=== PATIENT | male | born 1990 | race Hispanic/Latino ===

== ENCOUNTER 2017-10-10 06:00 | Day surgery (SDC) | payer OTHER ==
[~2017-10-10] VITALS: Ht 180.3 cm; Wt 145.2 kg
--- NOTE | ~2017-10-10 | OR ---
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 PROCEDURE: Arthrotomy right elbow with removal of loose body anteriorly, removal of several loose bodies posteriorly followed by ostectomy of the tip of the olecranon. ANESTHESIA: General. SPECIMENS AND COMPLICATIONS: There were no specimens or complications. TOURNIQUET TIME: Was about 55 minutes. WHAT WAS DONE: The patient was taken to the operating room. After anesthesia was induced and airway secured, the patient was positioned, prepped and draped in a routine sterile fashion. The arm was exsanguinated with Esmarch bandage. Pneumatic tourniquet was inflated to 250 mmHg pressure. A curvilinear lateral incision was made using a portion of one of his old scars for the incision. Skin was divided sharply. Subcutaneous tissue was bluntly spread. We then gently elevated the common extensor wad off the lateral epicondyle and reflected it anteriorly. The limited arthrotomy was done anteriorly and a large loose body seen radiographically. It was grasped and removed without any difficulty. We then irrigated the joint and some additional debris did come out. We then elevated the extensor origin off the posterior aspect, so we could get at the posterior aspect of the elbow joint. We then used a small Cleve clamp and removed loose body from posteriorly. We then used a half-inch osteotome to remove about a centimeter of the tip of the olecranon. After this was removed, we then had full extension of the elbow again. We treated the open surface of the bone with bone wax and PATIENT NAME: MARITO DENNIS OPERATIVE REPORT DATE OF : 88 REPORT #: [id number] PHYSICIAN: DEVENDRA WANG MD PCP: STEFF GERARD MD REPORT IS CONFIDENTIAL AND NOT TO BE RELEASED WITHOUT AUTHORIZATION [facility] [address], [place] [address] Draft copiously irrigated the elbow and drained it. We then placed a single suture anchor over the lateral epicondyle and reattached the radial collateral ligament and the common extensor origin. We then closed the defect in the common extensor origin with interrupted sutures of FiberWire. Routine wound closure was then accomplished and a sterile dressing applied, over which a posterior splint was placed. He was placed in a sling, awakened to the recovery room, where he arrived in stable condition. Counts were correct and antibiotic protocols were followed. Devendra Wang MD WFB/MODL /[id number] Copies: ~ PATIENT NAME: MARITO DENNIS OPERATIVE REPORT DATE OF : [birth year] REPORT #: [id number] PHYSICIAN: DEVENDRA WANG MD PCP: STEFF GERARD MD REPORT IS CONFIDENTIAL AND NOT TO BE RELEASED WITHOUT AUTHORIZATION
--- NOTE | 2017-10-10 09:06 | NUR ---
10/10/17 0906 Cora Forte 0901-PATIENT ARRIVED TO PACU ON 8L MASK O2 SAT 96% PATIENT REACTIVE TO VOICE OPENS EYES BACK TO SLEEP. RIGHT ARM IN SLING ICE APPLIED. GOOD CAP REFILL AND RADIAL PULSE. DRESSING CDI. GUARDS AT BEDSIDE. RR EVEN
--- NOTE | 2017-10-10 09:50 | NUR ---
PT IS BACK TO DS FROM PACU. [employer] OFFICER IN THE ROOM WITH PT. HE HAS NO C/O'S NAUSEA. RATES PAIN A 4/10. ICE WATER ON THE BEDSIDE TABLE. NO OTHER C/O'S AT THIS TIME. WILL REASSESS WITHIN THE HOUR.
--- NOTE | 2017-10-10 10:44 | NUR ---
PT IS DROWSY, BUT EASY TO WAKE. HE REPORTS PAIN 5/10. HE WOULD LIKE SOMETHING FOR THE PAIN. NO OTHER C/O'S AT THIS TIME. WILL REASSESS WITHIN THE HOUR.
--- NOTE | 2017-10-10 11:05 | NUR ---
PT HAS MET DC CRITERIA. DC INSTRUCTIONS GIVEN VERBALLY IN THE PRESENCE OF [employer]ORT OFFICERS. REPORT CALLED OUT TO [facility].
== END 2017-10-10 11:00 | disposition home or self-care (01) ==
LOC: OPS 06:00 → DS 06:00 → OPS 06:45 → DS 06:45 → OPS 07:15
PROVIDERS: Orthopaedic Surgery
PROC: 0PBK0ZZ Excision of Right Ulna, Open Approach (ICD-10-PCS; 2017-10-10)
PROC: 0RCL0ZZ Extirpation of Matter from Right Elbow Joint, Open Approach (ICD-10-PCS; principal; 2017-10-10 07:15)
DX: M24.021 Loose body in right elbow (principal); M19.021 Primary osteoarthritis, right elbow; E66.01 Morbid (severe) obesity due to excess calories; Z68.41 Body mass index [BMI] 40.0-44.9, adult
CPT/HCPCS: 01730; C1713; J0330; J0690; J1100; J1885; J2250; J2270; J2405; J2704; J3010; J7120